=== PATIENT | female | born 2005 | race Caucasian/White ===

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

== ENCOUNTER 2024-02-09 02:07 | Outpatient (RCR) | payer BC, SELFPAY ==
[2024-01-23 00:02] VITALS: BP 94/56; PULSE 70; RESP 16; TEMP 37.1
[2024-02-09] MEDS: IMMUNE GLOBULIN 10 GM/100 ML BTL IVPB (08:14)
[2024-02-09] MEDS: Normal Saline Flush 10 ML SYR IVP (08:14)
[2024-02-09 08:20] VITALS: BP 94/60; PULSE 51; RESP 16; TEMP 36.9; O2SAT 100
[2024-02-09 08:35] VITALS: BP 95/56; PULSE 62; RESP 16; TEMP 37; O2SAT 99
[2024-02-09 08:50] VITALS: BP 88/46; PULSE 57; RESP 16; TEMP 36.9; O2SAT 100
[2024-02-09 09:20] VITALS: BP 91/58; PULSE 59; RESP 16; TEMP 37; O2SAT 99
[2024-02-09] MEDS: IMMUNE GLOBULIN 20 GM/200 ML BTL IVPB (09:20)
[2024-02-09 09:50] VITALS: BP 92/58; PULSE 55; RESP 16; TEMP 37; O2SAT 99
[2024-02-09 10:20] VITALS: BP 90/63; PULSE 51; RESP 16; TEMP 36.6; O2SAT 99
== END 2024-02-22 23:59 | disposition home or self-care (01) ==
LOC: INF 02:07
PROVIDERS: PCP Nurse Practitioner Pediatrics; Visit Provider Nurse Practitioner Acute Care
DX: D80.1 Nonfamilial hypogammaglobulinemia (principal)
CPT/HCPCS: 96365; 96366; J1459

== ENCOUNTER 2024-03-08 04:08 | Outpatient (CLI) | payer BC, SELFPAY ==
[2024-03-08 11:04] LABS: Absolute Basophil Count 0.08 10^3/uL (0.0-0.2); Absolute Lymphocyte Count 2.52 10^3/uL (1.2-3.4); Absolute Monocyte Count 0.42 10^3/uL (0.1-0.8); Absolute Neutrophil Count 0.95 10^3/uL (1.2-6.7); Eosinophils % 2.5 %; HCT 41.2 % (36.0-46.0); HGB 13.6 g/dL (11.2-15.7); Lymphocytes % 61.9 %; MCH 30.8 pg (27.0-33.0); MCV 93 fL (80-95); MPV 10.4 fL (8.0-11.0); Monocytes % 10.3 %; Neutrophils % 23.3 %; Platelet Count 230 10^3/uL (130-400); RBC 4.42 10^6/uL (3.93-5.22); RDW 11.8 % (11.7-14.6); RDW-SD 40.3 fL; WBC 4.07 10^3/uL (4.4-10.8)
[2024-03-08 11:35] LABS: Diff Comment Diff Reviewed; RBC Morphology Normal
[2024-03-08 12:03] LABS: ALT 19 U/L (14-59); AST 23 U/L (15-37); Albumin 3.6 g/dL (3.4-5.0); Alkaline Phosphatase 73 U/L (46-116); Anion Gap 7.6 mmol/L (3-11); BUN 9 mg/dL (7-18); Bilirubin, Total 1.25 mg/dL (0.2-1.0); CO2 28.4 mmol/L (21.0-32.0); CREATININE 0.7 mg/dL (0.55-1.02); Calcium 9.3 mg/dL (8.5-10.1); Chloride 105 mmol/L (98-107); Estimated GFR 127.69 (mL/min/1.73m2); Glucose 77 mg/dL (74-106); Potassium 4.3 mmol/L (3.5-5.1); Sodium 141 mmol/L (136-145); TSH (W/Ref FT4) 0.86 uIU/mL (0.52-4.13)
[2024-03-08 18:30] LABS: Ferritin 27 ng/mL (8-252)
== END 2024-03-08 04:09 | disposition home or self-care (01) ==
LOC: LBO 04:08
PROVIDERS: PCP Nurse Practitioner Pediatrics; Visit Provider Nurse Practitioner Pediatrics
DX: R53.83 Other fatigue (principal)
CPT/HCPCS: 36415; 80053; 82728; 84443; 85025

== ENCOUNTER 2024-03-09 01:23 | Outpatient (RCR) | payer BC, SELFPAY ==
[2024-02-23 00:05] VITALS: BP 94/56; PULSE 70; RESP 16; TEMP 37.1
[2024-03-09 10:05] VITALS: BP 99/68; PULSE 58; RESP 18; TEMP 36.9; O2SAT 98
[2024-03-09] MEDS: IMMUNE GLOBULIN 10 GM/100 ML BTL IVPB (10:08)
[2024-03-09] MEDS: Normal Saline Flush 10 ML SYR IVP (10:13)
[2024-03-09 10:28] VITALS: BP 101/63; PULSE 60; RESP 16; TEMP 36.8; O2SAT 98
[2024-03-09 10:42] VITALS: BP 106/66; PULSE 83; RESP 16; TEMP 36.6; O2SAT 99
[2024-03-09 11:12] VITALS: BP 91/56; PULSE 85; RESP 17; TEMP 36.6; O2SAT 98
[2024-03-09] MEDS: IMMUNE GLOBULIN 20 GM/200 ML BTL IVPB (11:12)
[2024-03-09 11:42] VITALS: BP 95/51; PULSE 55; RESP 16; TEMP 36.5; O2SAT 100
[2024-03-09 12:10] VITALS: BP 99/58; PULSE 57; RESP 18; TEMP 36.8; O2SAT 99
== END 2024-03-24 23:59 | disposition home or self-care (01) ==
LOC: INF 01:23
PROVIDERS: PCP Nurse Practitioner Pediatrics; Visit Provider Nurse Practitioner Acute Care
DX: D80.1 Nonfamilial hypogammaglobulinemia (principal)
CPT/HCPCS: 96365; 96366; J1459

== ENCOUNTER 2024-04-06 01:03 | Outpatient (RCR) | payer BC, SELFPAY ==
[2024-03-25 00:04] VITALS: BP 94/56; PULSE 70; RESP 16; TEMP 37.1
[2024-04-06] MEDS: IMMUNE GLOBULIN 10 GM/100 ML BTL IVPB (13:11)
[2024-04-06] MEDS: Normal Saline Flush 10 ML SYR IVP (13:12)
[2024-04-06 13:15] VITALS: BP 117/70; PULSE 72; RESP 18; TEMP 37.1; O2SAT 98
[2024-04-06 13:30] VITALS: BP 124/69; PULSE 68; RESP 18; TEMP 37.1; O2SAT 98
[2024-04-06 13:45] VITALS: BP 122/75; PULSE 75; RESP 18; TEMP 37.1; O2SAT 98
[2024-04-06 14:15] VITALS: BP 104/62; PULSE 74; RESP 18; TEMP 37.1; O2SAT 98
[2024-04-06] MEDS: IMMUNE GLOBULIN 20 GM/200 ML BTL IVPB (14:23)
[2024-04-06 14:45] VITALS: BP 112/70; PULSE 74; RESP 18; TEMP 37.1; O2SAT 98
[2024-04-06 15:15] VITALS: BP 116/78; PULSE 79; RESP 18; TEMP 37.1; O2SAT 98
== END 2024-04-23 23:59 | disposition home or self-care (01) ==
LOC: INF 01:03
PROVIDERS: PCP Nurse Practitioner Pediatrics; Visit Provider Nurse Practitioner Acute Care
DX: D80.1 Nonfamilial hypogammaglobulinemia (principal)
CPT/HCPCS: 96365; 96366; J1459

== ENCOUNTER 2024-05-11 01:00 | Outpatient (RCR) | payer BC, SELFPAY ==
[2024-04-24 00:05] VITALS: BP 94/56; PULSE 70; RESP 16; TEMP 37.1
[2024-05-11 12:59] VITALS: BP 110/69; PULSE 63; RESP 16; TEMP 37.1; O2SAT 98
[2024-05-11] MEDS: IMMUNE GLOBULIN 10 GM/100 ML BTL IVPB (13:08)
[2024-05-11] MEDS: Normal Saline Flush 10 ML SYR IVP (13:10)
[2024-05-11 13:26] VITALS: BP 109/69; PULSE 60; RESP 17; TEMP 37.1; O2SAT 98
[2024-05-11 13:44] VITALS: BP 110/69; PULSE 65; RESP 17; TEMP 37.1; O2SAT 98
[2024-05-11] MEDS: IMMUNE GLOBULIN 20 GM/200 ML BTL IVPB (14:07)
[2024-05-11 14:18] VITALS: BP 114/68; PULSE 66; RESP 17; TEMP 37.1; O2SAT 99
[2024-05-11 14:49] VITALS: BP 94/52; PULSE 60; RESP 17; TEMP 36.1; O2SAT 99
[2024-05-11 15:18] VITALS: BP 94/52; PULSE 62; RESP 17; TEMP 37.2; O2SAT 98
== END 2024-05-24 23:59 | disposition home or self-care (01) ==
LOC: INF 01:00
PROVIDERS: PCP Nurse Practitioner Pediatrics; Visit Provider Nurse Practitioner Acute Care
DX: D80.1 Nonfamilial hypogammaglobulinemia (principal)
CPT/HCPCS: 96365; 96366; J1459

== ENCOUNTER 2024-06-08 01:36 | Outpatient (RCR) | payer BC, SELFPAY ==
[2024-05-25 00:25] VITALS: BP 94/56; PULSE 70; RESP 16; TEMP 37.1
[2024-06-08] MEDS: IMMUNE GLOBULIN 10 GM/100 ML BTL IVPB (13:03)
[2024-06-08 13:05] VITALS: BP 114/57; PULSE 70; RESP 17; TEMP 36.8; O2SAT 96
[2024-06-08 13:20] VITALS: BP 95/63; PULSE 63; RESP 17; TEMP 36.8; O2SAT 94
[2024-06-08 13:35] VITALS: BP 95/61; PULSE 52; RESP 17; TEMP 36.7; O2SAT 99
[2024-06-08] MEDS: IMMUNE GLOBULIN 20 GM/200 ML BTL IVPB (14:07)
[2024-06-08 14:20] VITALS: BP 94/49; PULSE 84; RESP 18; TEMP 36.7; O2SAT 99
[2024-06-08 14:52] VITALS: BP 105/60; PULSE 60; RESP 17; TEMP 36.7; O2SAT 97
== END 2024-06-23 23:59 | disposition home or self-care (01) ==
LOC: INF 01:36
PROVIDERS: PCP Nurse Practitioner Pediatrics; Visit Provider Nurse Practitioner Acute Care
DX: D80.1 Nonfamilial hypogammaglobulinemia (principal)
CPT/HCPCS: 96365; 96366; J1459

== ENCOUNTER 2024-06-17 20:31 | Emergency (ER) | payer BC, SELFPAY ==
[2024-06-17 20:31] VITALS: BP 124/73; PULSE 89; RESP 18; TEMP 35.6; O2SAT 97
--- NOTE | 2024-06-17 20:45 | DI.RAD_ITS ---
Exam(s) XR CHEST 2V PA LATERAL EXAM: XR CHEST 2V PA LATERAL CLINICAL HISTORY: cough x2 mo, immunosuppressed TECHNIQUE: 2D digital imaging was performed of the chest. Two images were obtained. PA and lateral views were obtained. COMPARISON: CR CHEST 2 VIEWS PA,LAT from 10/27/[address] CHEST/ABD/PEL W from 11/15/2023 FINDINGS: MEDIASTINUM: Normal. HEART: Normal. PULMONARY VASCULATURE: Normal. LUNGS: Clear. PLEURAL SPACE: No pleural effusion or pneumothorax. BONE:Within normal limits for the patient's age. OTHER FINDINGS:Normal. IMPRESSION: No acute pulmonary findings. DATA REPOSITORY: RADIATION DOSE DELIVERED:
[2024-06-17 20:57] LABS: Abs Immature Grans 0.04 10^3/uL (0.0-0.06); Absolute Basophil Count 0.04 10^3/uL (0.0-0.2); Absolute Eosinophil Count 0.02 10^3/uL (0.0-0.7); Absolute Lymphocyte Count 1.51 10^3/uL (1.2-3.4); Absolute Monocyte Count 0.31 10^3/uL (0.1-0.8); Absolute Neutrophil Count 6.87 10^3/uL (1.2-6.7); Basophils % 0.5 %; Eosinophils % 0.2 %; HCT 41.8 % (36.0-46.0); HGB 13.5 g/dL (11.2-15.7); Immature Grans % 0.5 %; Lymphocytes % 17.2 %; MCHC 32.3 % (32.0-36.0); MCV 96 fL (80-95); MPV 10.3 fL (8.0-11.0); Monocytes % 3.5 %; Neutrophils % 78.1 %; Platelet Count 244 10^3/uL (130-400); RBC 4.35 10^6/uL (3.93-5.22); RDW 11.9 % (11.7-14.6); RDW-SD 42.5 fL; WBC 8.79 10^3/uL (4.4-10.8)
[2024-06-17] MEDS: Prochlorperazine 10 MG/2 ML VIAL 5 MG IVP (20:59)
[2024-06-17] MEDS: Ketorolac 15 MG/ML VIAL 7.5 MG IVP (21:00)
[2024-06-17 21:13] LABS: ALT 19 U/L (14-59); AST 20 U/L (15-37); Albumin 3.8 g/dL (3.4-5.0); Alkaline Phosphatase 77 U/L (46-116); Anion Gap 11.6 mmol/L (3-11); BUN 8 mg/dL (7-18); Bilirubin, Total 1.21 mg/dL (0.2-1.0); CO2 25.4 mmol/L (21.0-32.0); CREATININE 0.8 mg/dL (0.55-1.02); Chloride 105 mmol/L (98-107); Estimated GFR 108.78 (mL/min/1.73m2); Glucose 102 mg/dL (74-106); Lipase 45 U/L (<78); Magnesium 1.9 mg/dL (1.8-2.4); Potassium 3.8 mmol/L (3.5-5.1); Sodium 142 mmol/L (136-145); Total Protein 8.1 g/dL (6.4-8.2)
--- NOTE | 2024-06-17 21:26 | W.ED.GENAD ---
Discharge Plan Disposition Patient Disposition: Home Condition: Stable Discharge Details Clinical Impression: Nausea & vomiting Primary Care Provider: Micheal Mcwilliams ED Provider: Delores Patrick Home Meds and New Rx's Prescriptions: New ondansetron 4 mg tablet,disintegrating 4 mg PO Q8-10H PRNQty: 10 0RF Continued (DME) Aerochamber MV Spacer See Rx Instructions .ROUTE .MEDSUPPLY Qty: 2 1RF Rx Instructions: As directed fluoxetine 10 mg capsule 10 mg PO DAILY Qty: 90 4RF Rx Instructions: Take 1 cap daily Hizentra 10 GM/50 ML solution 20 gm IV monthly Qty: 100 levonorgestrel-ethinyl estrad [Vienva] 0.1-20 mg-mcg tablet See Rx Instructions .ROUTE .COMPLEX Qty: 84 3RF Dose Instruction: TAKE 1 TABLET BY MOUTH DAILY Rx Instructions: TAKE 1 TABLET BY MOUTH DAILY budesonide-formoterol [Symbicort] 160-4.5 mcg/actuation HFA aerosol inhaler 2 puff inhalation BID Qty: 10.2 1RF Rx Instructions: Take 2 puffs twice daily with onset of cold symptoms and 2 puffs as needed diphenhydramine HCl 25 MG capsule 25 mg PO PRN PRN Discharge Instructions Instructions: Nausea and vomiting in adults Additional Instructions: Take Zofran as needed for nausea and vomiting Clear liquid diet as tolerated Return should you develop fever, chills, persistent nausea vomiting, or if any new concerns arise Please follow-up with your primary care physician for recheck in 48 hours Referrals: Micheal Mcwilliams, INSTALLATION SPECIALIST [Primary Care Provider] - 2 days HPI General Date/Time Provider Initiated Documentation: 06/17/24 20:36. HPI Narrative: This 18-year-old female with congenital immunodeficiency, mild intermittent asthma hypogammaglobulinemia, trigeminal neuralgia presents with report of nausea and vomiting with headache that started at around 8 to 9 AM this morning. Denies known sick contacts, fever or chills. Denies chest pain or shortness of breath. Intermittent abdominal pain primarily prior to onset of vomiting has had approximately 4 episodes of vomiting today denies any blood in vomitus or chance of . Denies any new medications. Last received IVIG on 08 June without incident receives immunoglobulin monthly. Does attend [facility] but denies known sick contacts. Denies any rashes or lesions. Denies any falls or injuries. Denies any stiff neck. Related Data Home Medications ?Medication ?Instructions ?Recorded ?Confirmed diphenhydramine HCl 25 mg capsule 25 mg PO PRN PRN 12/10/17 06/17/24 immun glob G 10 gram/50 mL(20 20 gm IV monthly #100 mL 03/07/18 06/17/24 %)-pro-IgA 0-50 mcg/mL subcutaneous soln (Hizentra) levonorgestrel-ethinyl estradiol See Rx Instructions .Route 01/05/24 06/17/24 0.1 mg-20 mcg tablet (Vienva) .COMPLEX #84 tabs fluoxetine 10 mg capsule 10 mg PO DAILY #90 caps 02/29/24 06/17/24 inhalational spacing device #2 ea 02/29/24 06/17/24 (Aerochamber MV spacer) budesonide-formoterol HFA 160 2 puff inhalation BID #10.2 grams 03/01/24 06/17/24 mcg-4.5 mcg/actuation aerosol inhaler (Symbicort) ondansetron 4 mg disintegrating 4 mg PO Q8-10H PRN #10 tabs 06/17/24 tablet Previous Rx's ?Medication ?Instructions ?Recorded levonorgestrel-ethinyl estradiol See Rx Instructions .Route 01/05/24 0.1 mg-20 mcg tablet (Vienva) .COMPLEX #84 tabs fluoxetine 10 mg capsule 10 mg PO DAILY #90 caps 02/29/24 inhalational spacing device #2 ea 02/29/24 (Aerochamber MV spacer) budesonide-formoterol HFA 160 2 puff inhalation BID #10.2 grams 03/01/24 mcg-4.5 mcg/actuation aerosol inhaler (Symbicort) ondansetron 4 mg disintegrating 4 mg PO Q8-10H PRN #10 tabs 06/17/24 tablet Allergies Allergy/AdvReac Type Severity Reaction Status Date / Time No Known Allergies Allergy Verified 06/17/24 20:35 General Stated Complaint: Nausea/Vomit/Diar GATITO: 3 Exam Narrative Exam Narrative: Alert and oriented 18-year-old female in no acute distress, pupils equal round reactive to light and accommodation, no meningismus, lungs clear to auscultation, cardiac rate rhythm regular alert and oriented x 4, Course Vital Signs Vital signs: Vital Signs Temperature 35.6 C L 06/17/24 20:31 Pulse 89 06/17/24 20:31 Respiratory Rate 18 06/17/24 20:31 Blood Pressure 124/73 06/17/24 20:31 Pulse Oximetry 97 06/17/24 20:31 Temperature 35.6 C L 06/17/24 20:31 Temperature Source Temporal Artery Scan 06/17/24 20:31 Pulse 89 06/17/24 20:31 Respiratory Rate 18 06/17/24 20:31 Respiratory Effort Normal, Non-Labored 06/17/24 20:36 Blood Pressure 124/73 06/17/24 20:31 Blood Pressure Position Sitting 06/17/24 20:31 Pulse Oximetry 97 06/17/24 20:31 Oxygen Delivery Method Room Air 06/17/24 20:31 Oxygen Flow Rate 0 06/17/24 20:31 Pain Level 6 06/17/24 20:31 Lab/Test Results Lab/Test Results: Laboratory Tests Range/Units 06/17/24 20:50 WBC (4.4-10.8) 10^3/uL 8.79 RBC (3.93-5.22) 10^6/uL 4.35 Hgb (11.2-15.7) g/dL 13.5 Hct (36.0-46.0) % 41.8 MCV (80-95) fL 96 H MCH (27.0-33.0) pg 31.0 MCHC (32.0-36.0) % 32.3 RDW (11.7-14.6) % 11.9 Plt Count (130-400) 10^3/uL 244 MPV (8.0-11.0) fL 10.3 Immature Gran % % 0.5 Neutrophils % % 78.1 Lymphocytes % % 17.2 Monocytes % % 3.5 Eosinophils % % 0.2 Basophils % % 0.5 Nucleated RBC % (0.0-0.3) % 0.0 Absolute Neutrophils (1.2-6.7) 10^3/uL 6.87 H Absolute Lymphocytes (1.2-3.4) 10^3/uL 1.51 Absolute Monocytes (0.1-0.8) 10^3/uL 0.31 Absolute Eosinophils (0.0-0.7) 10^3/uL 0.02 Absolute Basophils (0.0-0.2) 10^3/uL 0.04 Sodium (136-145) mmol/L 142 Potassium (3.5-5.1) mmol/L 3.8 Chloride (98-107) mmol/L 105 Carbon Dioxide (21.0-32.0) mmol/L 25.4 Anion Gap (3-11) mmol/L 11.6 H BUN (7-18) mg/dL 8 Creatinine (0.55-1.02) mg/dL 0.8 Est GFR (CKD-EPI 2020) (mL/min/1.73m2) 108.78 Glucose (74-106) mg/dL 102 Calcium (8.5-10.1) mg/dL 9.0 Magnesium (1.8-2.4) mg/dL 1.9 Total Bilirubin (0.2-1.0) mg/dL 1.21 H AST (15-37) U/L 20 ALT (14-59) U/L 19 Alkaline Phosphatase (46-116) U/L 77 Total Protein (6.4-8.2) g/dL 8.1 Albumin (3.4-5.0) g/dL 3.8 Lipase (<78) U/L 45 Medical Decision Making 18-year-old female with history of immunocompromise state presenting with nausea and vomiting. She had no acute distress, she received Compazine. She is afebrile and nontoxic, chest x-ray per radiology interpretation my review does not show evidence of acute abnormality. She is feeling marked improvement after Toradol. She is able to tolerate p.o. and requesting discharge home. POC negative. Urinalysis is a contaminated specimen, no obvious evidence of urinary tract infection. Return precautions reviewed and patient expressed understanding. Recheck with primary care physician in 2 to 3 days. 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 Lucas, [facility] [place] Pyloric stenosis REPAIRED Chronic otitis media Bacterial urinary infection NORMAL US 02-20-08 Surgical History H/O breast surgery Mass excised [facility] [place] November 2021 Repair, Pyloric Stenosis Myringotomy w/ PE (pressure equalizing) tubes Adenoidectomy Family History Mother No problems noted. Father No problems noted. 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
[2024-06-17] MEDS: diphenhydrAMINE 50 MG/ML VIAL 25 MG IVP (21:57)
--- NOTE | 2024-06-17 22:12 | DI.VRAD_ITS ---
PROCEDURE INFORMATION: Exam: XR Chest Exam date and time: 06/17/2024 9:11 PM Age: 18 years old Clinical indication: Other: Cough x2 mo, immunosuppressed TECHNIQUE: Imaging protocol: Radiologic exam of the chest. Views: 2 views. COMPARISON: CT CHEST/ABD/PEL W 11/15/2023 10:11 AM FINDINGS: Lungs: There is no focal consolidation. Pleural spaces: There is no pneumothorax. Heart/Mediastinum: The cardiomediastinal contours are within normal limits. Bones/joints: Bony structures are age-appropriate. IMPRESSION: 1. No focal consolidation or pneumothorax. If symptoms remain concerning, CT scan could be considered. Dictated and Authenticated by: Gillian Ray MD. Ordering:RYLEE Estrella MD
[2024-06-17 22:22] LABS: Bilirubin Small (Negative); Blood Negative (Negative); Clarity Clear (Clear); Glucose Negative (Negative); Ketones 40 mg/dL (Negative); Leukocyte Esterase Trace (Negative); Nitrite Negative (Negative); Specific Gravity 1.025 (1.005-1.025)
[2024-06-17 22:28] VITALS: BP 90/57; PULSE 69; RESP 16; TEMP 36.7; O2SAT 100
[2024-06-17 22:30] VITALS: BP 90/57; PULSE 69; RESP 16; TEMP 36.7; O2SAT 100
[2024-06-17 22:32] LABS: Bacteria Moderate HPF (Negative); C & S Indicated? No/Sq. Contamination; Casts Negative LPF (Negative); Crystals Negative HPF (Negative); Epithelial Cells Many HPF (Negative); Mucus Heavy (Negative); RBC 0-2 HPF (0-2)
[2024-06-17] MEDS: Ondansetron O.D.T. 4 MG TABEF, 3 TABS/BTL PO (22:32)
== END 2024-06-17 22:30 | disposition home or self-care (01) ==
PROVIDERS: Emergency Provider Physician Assistant; PCP Nurse Practitioner Pediatrics
DX: R11.2 Nausea with vomiting, unspecified (principal); R51.9 Headache, unspecified; M54.2 Cervicalgia; D80.2 Selective deficiency of immunoglobulin A [IgA]; D80.3 Selective deficiency of immunoglobulin G [IgG] subclasses; G50.0 Trigeminal neuralgia; Z79.899 Other long term (current) drug therapy
CPT/HCPCS: 80053; 81025; 83690; 96374; 96375; 99285; 71046; 81003; 81015; 83735; 85025; 99284; J0780; J1200; J1885

== ENCOUNTER 2024-07-04 02:10 | Outpatient (RCR) | payer BC, SELFPAY ==
[2024-06-24 00:10] VITALS: BP 94/56; PULSE 70; RESP 16; TEMP 37.1
[2024-07-04] MEDS: IMMUNE GLOBULIN 20 GM/200 ML BTL IVPB (12:31)
[2024-07-04 12:39] VITALS: BP 102/51; PULSE 62; RESP 18; TEMP 37.1; O2SAT 99
[2024-07-04] MEDS: Normal Saline Flush 10 ML SYR IVP (12:46)
[2024-07-04 12:56] VITALS: BP 101/65; PULSE 61; RESP 18; TEMP 36.8; O2SAT 97
[2024-07-04 13:11] VITALS: BP 106/68; PULSE 65; RESP 18; TEMP 36.8; O2SAT 98
[2024-07-04 13:43] VITALS: BP 100/61; PULSE 61; RESP 18; TEMP 36.6; O2SAT 98
[2024-07-04] MEDS: IMMUNE GLOBULIN 10 GM/100 ML BTL IVPB (13:43)
[2024-07-04 14:12] VITALS: BP 96/56; PULSE 61; RESP 18; TEMP 36.6; O2SAT 99
[2024-07-04 14:41] VITALS: BP 100/56; PULSE 54; RESP 18; TEMP 36.6; O2SAT 98
== END 2024-07-24 23:59 | disposition home or self-care (01) ==
LOC: INF 02:10
PROVIDERS: PCP Nurse Practitioner Pediatrics; Visit Provider Nurse Practitioner Acute Care
DX: D80.1 Nonfamilial hypogammaglobulinemia (principal); R53.83 Other fatigue
CPT/HCPCS: 96365; 96366; J1459

== ENCOUNTER 2024-08-27 02:56 | Outpatient (RCR) | payer OTHER, SELFPAY ==
[2024-08-27] MEDS: Normal Saline Flush 10 ML SYR IVP (08:19)
[2024-08-27] MEDS: IMMUNE GLOBULIN 10 GM/100 ML BTL IVPB (08:19)
[2024-08-27 08:24] VITALS: BP 90/53; PULSE 60; RESP 16; TEMP 36.6; O2SAT 98
[2024-08-27 08:28] LABS: Abs Immature Grans 0.01 10^3/uL (0.0-0.06); Absolute Basophil Count 0.04 10^3/uL (0.0-0.2); Absolute Eosinophil Count 0.12 10^3/uL (0.0-0.7); Absolute Lymphocyte Count 3.22 10^3/uL (1.2-3.4); Absolute Neutrophil Count 1.71 10^3/uL (1.2-6.7); Basophils % 0.7 %; Eosinophils % 2.2 %; HCT 39.5 % (36.0-46.0); HGB 12.7 g/dL (11.2-15.7); Immature Grans % 0.2 %; Lymphocytes % 58.5 %; MCH 31.2 pg (27.0-33.0); MCHC 32.2 % (32.0-36.0); MCV 97 fL (80-95); MPV 10.6 fL (8.0-11.0); Monocytes % 7.3 %; Neutrophils % 31.1 %; Platelet Count 203 10^3/uL (130-400); RBC 4.07 10^6/uL (3.93-5.22); RDW 11.5 % (11.7-14.6); RDW-SD 41.1 fL
[2024-08-27 08:40] VITALS: BP 106/69; PULSE 69; RESP 16; TEMP 36.4; O2SAT 100
[2024-08-27 08:54] LABS: ALT 26 U/L (14-59); AST 22 U/L (15-37); CREATININE 0.8 mg/dL (0.55-1.02); Estimated GFR 108.11 (mL/min/1.73m2); Iron 49 ug/dL (50-170); Total Iron Binding Capacity 480 ug/dL (250-450); Transferrin Sat 10 % (15-50)
[2024-08-27 08:55] VITALS: BP 99/52; PULSE 69; RESP 16; TEMP 36.4; O2SAT 99
[2024-08-27 09:25] VITALS: BP 97/60; PULSE 64; RESP 16; TEMP 36.5; O2SAT 100
[2024-08-27] MEDS: IMMUNE GLOBULIN 20 GM/200 ML BTL IVPB (09:25)
[2024-08-27 09:55] VITALS: BP 95/61; PULSE 68; RESP 16; TEMP 36.6; O2SAT 98
[2024-08-27 10:25] VITALS: BP 118/74; PULSE 92; RESP 16; TEMP 36.7; O2SAT 99
[2024-08-28 10:36] LABS: IgA <13 mg/dL (85-499); IgG 947 mg/dL (610-1616); IgM <12 mg/dL (35-242)
== END 2024-09-21 23:59 | disposition home or self-care (01) ==
LOC: INF 02:56
PROVIDERS: Allergy & Immunology Allergy; PCP Nurse Practitioner Pediatrics; Visit Provider Nurse Practitioner Acute Care
DX: D83.9 Common variable immunodeficiency, unspecified (principal); R53.83 Other fatigue
CPT/HCPCS: 36415; 82784; 96365; 96366; 82565; 83540; 83550; 84450; 84460; 85025; J1459

== ENCOUNTER 2024-10-22 01:29 | Outpatient (RCR) | payer OTHER, SELFPAY ==
[2024-09-24] MEDS: Normal Saline Flush 5 ML SYR IVP (08:14)
[2024-09-24] MEDS: IMMUNE GLOBULIN 20 GM/200 ML BTL IVPB (08:14)
[2024-09-24 08:23] VITALS: BP 110/72; PULSE 83; RESP 18; TEMP 37.5; O2SAT 99
[2024-09-24] MEDS: Acetaminophen 500 MG TAB 1000 MG PO (08:25)
[2024-09-24 08:42] VITALS: BP 107/72; PULSE 72; RESP 18; TEMP 37.5; O2SAT 98
[2024-09-24 08:58] VITALS: BP 108/70; PULSE 64; RESP 18; TEMP 36.7; O2SAT 99
[2024-09-24 09:26] VITALS: BP 110/74; PULSE 62; RESP 16; TEMP 36.7; O2SAT 98
[2024-09-24] MEDS: IMMUNE GLOBULIN 10 GM/100 ML BTL IVPB (10:00)
[2024-09-24 10:01] VITALS: BP 107/71; PULSE 63; RESP 18; TEMP 36.6; O2SAT 99
[2024-09-24 10:29] VITALS: BP 103/69; PULSE 65; RESP 18; TEMP 36.8; O2SAT 99
[2024-10-22 08:07] VITALS: BP 97/61; PULSE 60; RESP 18; TEMP 37.7; O2SAT 100
[2024-10-22] MEDS: Normal Saline Flush 5 ML SYR IVP (08:09)
[2024-10-22] MEDS: IMMUNE GLOBULIN 10 GM/100 ML BTL IVPB (08:10)
[2024-10-22 08:32] VITALS: BP 102/54; PULSE 58; RESP 16; TEMP 36.9; O2SAT 99
[2024-10-22 08:47] VITALS: BP 111/69; PULSE 58; RESP 16; TEMP 36.7; O2SAT 99
[2024-10-22] MEDS: IMMUNE GLOBULIN 20 GM/200 ML BTL IVPB (09:14)
[2024-10-22 09:16] VITALS: BP 107/66; PULSE 71; RESP 18; TEMP 36.7; O2SAT 98
[2024-10-22 09:50] VITALS: BP 109/65; PULSE 65; RESP 17; TEMP 36.6; O2SAT 97
== END 2024-10-22 23:59 | disposition home or self-care (01) ==
LOC: INF 01:29
PROVIDERS: PCP Nurse Practitioner Pediatrics; Visit Provider Nurse Practitioner Acute Care
DX: D80.1 Nonfamilial hypogammaglobulinemia (principal)
CPT/HCPCS: 96365; 96366; J1459

== ENCOUNTER 2024-11-19 00:24 | Outpatient (RCR) | payer OTHER, SELFPAY ==
[2024-11-19 08:12] VITALS: BP 113/74; PULSE 69; RESP 20; TEMP 36.8; O2SAT 97
[2024-11-19] MEDS: IMMUNE GLOBULIN 10 GM/100 ML BTL IVPB (08:14)
[2024-11-19] MEDS: Normal Saline Flush 5 ML SYR IVP (08:15)
[2024-11-19 08:41] VITALS: BP 108/67; PULSE 70; RESP 19; TEMP 36.9; O2SAT 99
[2024-11-19 08:53] VITALS: BP 108/61; PULSE 69; RESP 20; TEMP 36.6; O2SAT 98
[2024-11-19] MEDS: IMMUNE GLOBULIN 20 GM/200 ML BTL IVPB (09:19)
[2024-11-19 09:24] VITALS: BP 117/71; PULSE 63; RESP 18; TEMP 36.9; O2SAT 97
[2024-11-19 09:54] VITALS: BP 116/75; PULSE 66; RESP 18; TEMP 36.7; O2SAT 99
== END 2024-11-21 23:59 | disposition home or self-care (01) ==
LOC: INF 00:24
PROVIDERS: PCP Nurse Practitioner Pediatrics; Visit Provider Nurse Practitioner Acute Care
DX: D80.1 Nonfamilial hypogammaglobulinemia (principal)
CPT/HCPCS: 96365; 96366; J1459

== ENCOUNTER 2024-12-19 01:03 | Outpatient (RCR) | payer OTHER, SELFPAY ==
[2024-12-19] MEDS: IMMUNE GLOBULIN 10 GM/100 ML BTL IVPB (08:11)
[2024-12-19] MEDS: Normal Saline Flush 10 ML SYR IVP (08:12)
[2024-12-19 08:17] VITALS: BP 99/64; PULSE 70; RESP 18; TEMP 37.2; O2SAT 98
[2024-12-19 08:33] VITALS: BP 96/60; PULSE 80; RESP 18; TEMP 37.2; O2SAT 97
[2024-12-19 08:50] VITALS: BP 100/61; PULSE 80; RESP 18; TEMP 37.3; O2SAT 99
[2024-12-19] MEDS: IMMUNE GLOBULIN 20 GM/200 ML BTL IVPB (09:17)
[2024-12-19 09:21] VITALS: BP 103/66; PULSE 81; RESP 18; TEMP 37; O2SAT 98
[2024-12-19 09:55] VITALS: BP 102/66; PULSE 84; RESP 18; TEMP 37.3; O2SAT 99
== END 2024-12-22 23:59 | disposition home or self-care (01) ==
LOC: INF 01:03
PROVIDERS: PCP Nurse Practitioner Pediatrics; Visit Provider Nurse Practitioner Acute Care
DX: D80.1 Nonfamilial hypogammaglobulinemia (principal)
CPT/HCPCS: 96365; 96366; J1459

== ENCOUNTER 2025-01-14 02:53 | Outpatient (RCR) | payer OTHER, SELFPAY ==
[2025-01-14 08:00] VITALS: BP 105/64; PULSE 73; RESP 18; TEMP 36.6; O2SAT 98
[2025-01-14] MEDS: IMMUNE GLOBULIN 10 GM/100 ML BTL IVPB (08:12)
[2025-01-14 08:30] VITALS: BP 104/64; PULSE 53; RESP 18; TEMP 36.6; O2SAT 99
[2025-01-14 08:45] VITALS: BP 99/65; PULSE 58; RESP 18; TEMP 36.5; O2SAT 100
[2025-01-14] MEDS: IMMUNE GLOBULIN 20 GM/200 ML BTL 3 GM IVPB (09:12)
[2025-01-14 09:17] VITALS: BP 101/69; PULSE 75; RESP 16; TEMP 36.4; O2SAT 98
[2025-01-14 09:47] VITALS: BP 101/66; PULSE 60; RESP 16; TEMP 36.5; O2SAT 99
[2025-01-14 10:24] VITALS: BP 116/78; PULSE 68; RESP 16; TEMP 36.6; O2SAT 99
[2025-01-14] MEDS: Normal Saline Flush 10 ML SYR IVP (10:41)
== END 2025-01-21 23:59 | disposition home or self-care (01) ==
LOC: INF 02:53
PROVIDERS: PCP Nurse Practitioner Pediatrics; Visit Provider Nurse Practitioner Acute Care
DX: D80.1 Nonfamilial hypogammaglobulinemia (principal)
CPT/HCPCS: 96365; 96366; J1459

== ENCOUNTER 2025-02-13 02:11 | Outpatient (RCR) | payer OTHER, SELFPAY ==
[2025-02-13] MEDS: IMMUNE GLOBULIN 10 GM/100 ML BTL 4 GM IVPB (08:27)
[2025-02-13 08:29] VITALS: BP 104/63; PULSE 69; RESP 18; TEMP 36.7; O2SAT 100
[2025-02-13 08:45] VITALS: BP 92/57; PULSE 68; RESP 18; TEMP 36.6; O2SAT 98
[2025-02-13 09:00] VITALS: BP 93/57; PULSE 63; RESP 18; TEMP 36.5; O2SAT 100
[2025-02-13] MEDS: IMMUNE GLOBULIN 20 GM/200 ML BTL IVPB (09:29)
[2025-02-13 09:33] VITALS: BP 100/58; PULSE 64; RESP 18; TEMP 36.7; O2SAT 99
[2025-02-13 10:07] VITALS: BP 100/61; PULSE 50; RESP 18; TEMP 36.8; O2SAT 99
[2025-02-13] MEDS: Normal Saline Flush 10 ML SYR IVP (10:49)
== END 2025-02-21 23:59 | disposition home or self-care (01) ==
LOC: INF 02:11
PROVIDERS: PCP Nurse Practitioner Pediatrics; Visit Provider Nurse Practitioner Acute Care
DX: D80.1 Nonfamilial hypogammaglobulinemia (principal)
CPT/HCPCS: 96365; 96366; J1459

== ENCOUNTER 2025-03-11 03:45 | Outpatient (RCR) | payer OTHER, SELFPAY ==
[2025-03-11] MEDS: IMMUNE GLOBULIN 10 GM/100 ML BTL IVPB (08:17)
[2025-03-11 08:20] VITALS: BP 97/54; PULSE 71; RESP 17; TEMP 36.5; O2SAT 100
[2025-03-11] MEDS: Normal Saline Flush 10 ML SYR IVP (08:23)
[2025-03-11 08:35] VITALS: BP 94/60; PULSE 60; RESP 16; TEMP 36.1; O2SAT 98
[2025-03-11 08:50] VITALS: BP 91/55; PULSE 59; RESP 17; TEMP 36.1; O2SAT 99
[2025-03-11 09:20] VITALS: BP 104/69; PULSE 61; RESP 17; TEMP 37.2; O2SAT 100
[2025-03-11] MEDS: IMMUNE GLOBULIN 20 GM/200 ML BTL IVPB (09:24)
[2025-03-11 09:29] LABS: Abs Immature Grans 0.01 10^3/uL (0.0-0.06); HCT 41.3 % (36.0-46.0); HGB 13.2 g/dL (11.2-15.7); Immature Grans % 0.1 %; MCH 30.6 pg (27.0-33.0); MCHC 32.0 % (32.0-36.0); MCV 96 fL (80-95); MPV 11.3 fL (8.0-11.0); Platelet Count 210 10^3/uL (130-400); RBC 4.32 10^6/uL (3.93-5.22); RDW 11.7 % (11.7-14.6); RDW-SD 41.2 fL; WBC 6.92 10^3/uL (4.4-10.8)
[2025-03-11 09:50] VITALS: BP 99/62; PULSE 61; RESP 17; TEMP 36.6; O2SAT 100
[2025-03-11 09:54] LABS: ALT 25 U/L (14-59); AST 23 U/L (15-37); Estimated GFR 126.90 (mL/min/1.73m2)
[2025-03-11 10:20] VITALS: BP 100/67; PULSE 73; RESP 17; TEMP 36.1; O2SAT 100
== END 2025-03-24 23:59 | disposition home or self-care (01) ==
LOC: INF 03:45
PROVIDERS: PCP Nurse Practitioner Pediatrics; Visit Provider Family Medicine
DX: D80.1 Nonfamilial hypogammaglobulinemia (principal)
CPT/HCPCS: 36415; 82784; 96365; 96366; 82565; 84450; 84460; 85025; J1459

== ENCOUNTER 2025-04-09 04:02 | Outpatient (RCR) | payer OTHER, SELFPAY ==
[2025-04-09] MEDS: Normal Saline Flush 10 ML SYR IVP (08:26)
[2025-04-09] MEDS: IMMUNE GLOBULIN 10 GM/100 ML BTL IVPB (08:27)
[2025-04-09 08:30] VITALS: BP 112/71; PULSE 74; RESP 17; TEMP 36.5; O2SAT 97
[2025-04-09 08:45] VITALS: BP 110/72; PULSE 70; RESP 17; TEMP 36.5; O2SAT 98
[2025-04-09 09:00] VITALS: BP 104/68; PULSE 71; RESP 18; TEMP 36.5; O2SAT 97
[2025-04-09 09:30] VITALS: BP 100/65; PULSE 72; RESP 17; TEMP 36.4; O2SAT 98
[2025-04-09] MEDS: IMMUNE GLOBULIN 20 GM/200 ML BTL IVPB (09:35)
[2025-04-09 10:00] VITALS: BP 95/61; PULSE 64; RESP 17; TEMP 36.6; O2SAT 99
[2025-04-09 10:30] VITALS: BP 103/64; PULSE 64; RESP 16; TEMP 36.6; O2SAT 100
== END 2025-04-23 23:59 | disposition home or self-care (01) ==
LOC: INF 04:02
PROVIDERS: PCP Nurse Practitioner Pediatrics; Visit Provider Family Medicine
DX: D80.0 Hereditary hypogammaglobulinemia (principal)
CPT/HCPCS: 96365; 96366; J1459

== ENCOUNTER 2025-05-07 02:27 | Outpatient (RCR) | payer OTHER, SELFPAY ==
[2025-05-07] MEDS: IMMUNE GLOBULIN 10 GM/100 ML BTL IVPB (08:20)
[2025-05-07 08:25] VITALS: BP 101/64; PULSE 63; RESP 17; TEMP 37; O2SAT 99
[2025-05-07] MEDS: Normal Saline Flush 10 ML SYR IVP (08:30)
[2025-05-07 08:40] VITALS: BP 90/50; PULSE 63; RESP 17; TEMP 36.6; O2SAT 98
[2025-05-07 08:55] VITALS: BP 89/55; PULSE 75; RESP 17; TEMP 36.9; O2SAT 98
[2025-05-07 09:25] VITALS: BP 94/50; PULSE 80; RESP 17; TEMP 36.6; O2SAT 100
[2025-05-07] MEDS: IMMUNE GLOBULIN 20 GM/200 ML BTL IVPB (09:30)
[2025-05-07 09:55] VITALS: BP 101/66; PULSE 69; RESP 17; TEMP 36.6; O2SAT 100
== END 2025-05-24 23:59 | disposition home or self-care (01) ==
LOC: INF 02:27
PROVIDERS: PCP Nurse Practitioner Pediatrics; Visit Provider Family Medicine
DX: D80.9 Immunodeficiency with predominantly antibody defects, unspecified (principal)
CPT/HCPCS: 96365; 96366; 96372; 96375; J1459

== ENCOUNTER 2025-06-04 00:56 | Outpatient (RCR) | payer OTHER, SELFPAY ==
[2025-06-04] MEDS: Normal Saline Flush 10 ML SYR IVP (08:38)
[2025-06-04] MEDS: Immune Globulin-Privigen 10 GM/100 ML BTL IVPB (08:38)
[2025-06-04 08:40] VITALS: BP 104/70; PULSE 74; RESP 17; TEMP 37.1; O2SAT 98
[2025-06-04 08:55] VITALS: BP 95/59; PULSE 78; RESP 17; TEMP 37.2; O2SAT 100
[2025-06-04 09:14] VITALS: BP 98/59; PULSE 71; RESP 17; TEMP 37; O2SAT 98
[2025-06-04] MEDS: [UNRECOGNIZED DRUG - OTHER] IVPB (09:35)
[2025-06-04 09:40] VITALS: BP 99/65; PULSE 65; RESP 18; TEMP 37.1; O2SAT 100
[2025-06-04 10:10] VITALS: BP 113/66; PULSE 72; RESP 17; TEMP 37.2; O2SAT 100
== END 2025-06-23 23:59 | disposition home or self-care (01) ==
LOC: INF 00:56
PROVIDERS: PCP Nurse Practitioner Pediatrics; Visit Provider Family Medicine
DX: D80.2 Selective deficiency of immunoglobulin A [IgA] (principal); D83.9 Common variable immunodeficiency, unspecified
CPT/HCPCS: 96365; 96366; J1459

== ENCOUNTER 2025-07-09 14:34 | Emergency (ER) | payer OTHER, SELFPAY ==
[2025-07-09 14:38] VITALS: BP 109/70; PULSE 81; RESP 20; TEMP 36.4; O2SAT 98
[2025-07-09 14:41] VITALS: BP 109/70; PULSE 81; RESP 20; TEMP 36.4; O2SAT 98
[2025-07-09 16:00] LABS: COVID-19 PCR Negative (Negative); RSV PCR Negative (Negative)
--- NOTE | 2025-07-09 16:50 | W.ED.GENAD ---
Discharge Plan Disposition Patient Disposition: Home Condition: Stable Discharge Details Clinical Impression: Influenza A Primary Care Provider: Micheal Mcwilliams ED Provider: Catracho Alamo Home Meds and New Rx's Prescriptions: New oseltamivir 75 mg capsule 75 mg PO BID 5 Days Qty: 10 0RF Continued budesonide-formoterol [Symbicort] 160-4.5 mcg/actuation HFA aerosol inhaler 2 puff inhalation BID Qty: 10.2 1RF Rx Instructions: Take 2 puffs twice daily with onset of cold symptoms and 2 puffs as needed (DME) Aerochamber MV Spacer See Rx Instructions .ROUTE .MEDSUPPLY Qty: 2 1RF Rx Instructions: As directed Hizentra 10 GM/50 ML solution 20 gm IV monthly Qty: 100 fluoxetine 10 mg capsule See Rx Instructions .ROUTE .COMPLEX Qty: 90 4RF Dose Instruction: TAKE ONE CAPSULE BY MOUTH EVERY DAY Rx Instructions: TAKE ONE CAPSULE BY MOUTH EVERY DAY levonorgestrel-ethinyl estrad [Vienva] 0.1-20 mg-mcg tablet See Rx Instructions .ROUTE .COMPLEX Qty: 84 0RF Dose Instruction: TAKE 1 TABLET BY MOUTH DAILY Rx Instructions: TAKE 1 TABLET BY MOUTH DAILY diphenhydramine HCl 25 MG capsule 25 mg PO PRN PRN ondansetron 4 mg tablet,disintegrating 4 mg PO Q8-10H PRNQty: 10 0RF Discharge Instructions Instructions: Oseltamivir, Flu, Adult ED Additional Instructions: You were seen in the emergency department for your influenza infection, your onset is within the timeline to start Tamiflu, this medicine is clinically shown to shorten the duration of flu. Please use therapeutic dosing of Tylenol (acetamenophen) & Advil (ibuprofen) in an alternating fashion as follows: Take 1000mg of Tylenol every 6 hours without missing doses- that is 4 times per day. [place] in between the Tylenol dosings, take 400-600mg of Advil also on a 6 hour schedule, that is also 4 times per day. The daily maximum dosing of Tylenol is 4000mg, and the daily maximum dosing of Advil is 2400mg. This is safe to do for weeks. Please note that some common cold medications & prescription pain medications may contain acetamenophen and you need to read OTC drug labels and factor that in to maximum daily dosings. Use tea with honey, salt water gargles to relieve throat irritation, get lots of rest and stay well-hydrated and nourished. Return for any respiratory distress or other emergent concerns. Stand Alone Forms: Portal Information Referrals: Micheal Mcwilliams NP [Primary Care Provider, Pediatrics Medical] Discharge Data Discharge Date/Time-TO BE ENTERED AT DEPARTURE: 07/09/25 17:02 HPI General Date/Time Provider Initiated Documentation: 07/09/25 14:41. HPI Narrative: 19 year-old female presents to ED today by POV/ambulating with her mother with a chief complaint of N/V/D, sore throat, headache, chills, cough with onset yesterday. Quality described as generalized illness, no radiation to chest pain, shortness of breath, intractable vomiting, high fever, respiratory distress, profound lethargy. Severity is described as moderate. Palliating factors include nothing specific attempted. Provoking factors include nothing specific. Events leading up to the incident/Associated Symptoms: Patient did get flu shot this year. Patient not anticoagulated. Related Data Home Medications ?Medication ?Instructions ?Recorded ?Confirmed diphenhydramine HCl 25 mg capsule 25 mg PO PRN PRN 12/10/17 07/09/25 immun glob G 10 gram/50 mL(20 20 gm IV monthly #100 mL 03/07/18 07/09/25 %)-pro-IgA 0-50 mcg/mL subcutaneous soln (Hizentra) ondansetron 4 mg disintegrating 4 mg PO Q8-10H PRN #10 tabs 06/17/24 07/09/25 tablet budesonide-formoterol HFA 160 2 puff inhalation BID #10.2 grams 03/05/25 07/09/25 mcg-4.5 mcg/actuation aerosol inhaler (Symbicort) fluoxetine 10 mg capsule See Rx Instructions .Route 03/05/25 07/09/25 .COMPLEX #90 caps inhalational spacing device #2 ea 03/05/25 07/09/25 (Aerochamber MV spacer) levonorgestrel-ethinyl estradiol See Rx Instructions .Route 06/14/25 07/09/25 0.1 mg-20 mcg tablet (Vienva) .COMPLEX #84 tabs oseltamivir 75 mg capsule 75 mg PO BID 5 days #10 caps 07/09/25 Previous Rx's ?Medication ?Instructions ?Recorded ondansetron 4 mg disintegrating 4 mg PO Q8-10H PRN #10 tabs 06/17/24 tablet budesonide-formoterol HFA 160 2 puff inhalation BID #10.2 grams 03/05/25 mcg-4.5 mcg/actuation aerosol inhaler (Symbicort) fluoxetine 10 mg capsule See Rx Instructions .Route 03/05/25 .COMPLEX #90 caps inhalational spacing device #2 ea 03/05/25 (Aerochamber MV spacer) levonorgestrel-ethinyl estradiol See Rx Instructions .Route 06/14/25 0.1 mg-20 mcg tablet (Vienva) .COMPLEX #84 tabs oseltamivir 75 mg capsule 75 mg PO BID 5 days #10 caps 07/09/25 Allergies Allergy/AdvReac Type Severity Reaction Status Date / Time No Known Allergies Allergy Verified 07/09/25 14:42 General Stated Complaint: RespSymp GATITO: 3 Review of Systems All systems reviewed & are unremarkable except as noted in HPI and below Exam Narrative Exam Narrative: GENERAL APPEARANCE: Well-nourished, non-toxic, awake and alert, atraumatic, mild acute distress. SKIN: Warm, pink, dry, intact, without rashes/lesions/ulcerations. HEAD: Normocephalic, atraumatic, normal hair distribution for gender/age. EYES: Normal conjunctiva, no exudates on lids/lashes. ENT: Nares patent, no circumoral cyanosis, no facial swelling NECK: Supple, trachea midline, painless cervical ROM. LUNGS/CHEST: Lungs CTA bilaterally-no rhonchi/rales/wheeze diffusely, non-labored respirations, normal A/P diameter, symmetrical expansion, no chest wall deformity HEART (CV/PV): Regular rate and rhythm without murmur, no peripheral edema, no JVD. ABDOMEN: Soft, non-distended, no guarding. MSK: Normal ROM, no swelling/deformity to bilateral UEs or LEs, moving all extremities without weakness, no cyanosis, spine midline without tenderness, normal curvature. NEURO: Mental Status AAOx4 - alert to person, place, time, events No facial droop, no forehead involvement. Motor: No focal weakness - strength 5/5 in bilateral UEs and LEs, proximal and distal, symmetric. Sensory: sensation intact to light touch globally. Gait normal: patient ambulated without ataxia into ED room. PSYCH: euthymic, cooperative, pleasant, appropriate speech Course Vital Signs Vital signs: Vital Signs Temperature 36.4 C 07/09/25 14:38 Pulse 81 07/09/25 14:38 Respiratory Rate 20 07/09/25 14:38 Blood Pressure 109/70 07/09/25 14:38 Pulse Oximetry 98 07/09/25 14:38 Temperature 36.4 C 07/09/25 14:41 Pulse 81 07/09/25 14:41 Respiratory Rate 20 07/09/25 14:41 Blood Pressure 109/70 07/09/25 14:41 Blood Pressure Position Sitting 07/09/25 14:41 Pulse Oximetry 98 07/09/25 14:41 Oxygen Delivery Method Room Air 07/09/25 14:41 Oxygen Flow Rate 0 07/09/25 14:41 Lab/Test Results Lab/Test Results: Laboratory Tests Range/Units 07/09/25 15:09 COVID-19 Source Nasopharynx SARS-CoV-2 (PCR) (Negative) Negative Influenza Type A (PCR) (Negative) Positive A Influenza Type B (PCR) (Negative) Negative RSV (PCR) (Negative) Negative Medical Decision Making This dictation utilizes [id number] dictation software and may contain unedited grammatical errors. 19 year-old female presents to ED today by POV/ambulating with her mother with a chief complaint of N/V/D, sore throat, headache, chills, cough with onset yesterday. Quality described as generalized illness, no radiation to chest pain, shortness of breath, intractable vomiting, high fever, respiratory distress, profound lethargy. Severity is described as moderate. Palliating factors include nothing specific attempted. Provoking factors include nothing specific. Events leading up to the incident/Associated Symptoms: Patient did get flu shot this year. Patients' medical history: States she has IgA and IgG immunodeficiency, mild intermittent asthma, trigeminal neuralgia, migraine. Family and social history: Noncontributory. Pertinent exam findings / vital signs include lungs CTA, stable vitals, afebrile, nontoxic. Differential / pathologies of concern include viral syndrome, COVID or the flu, less likely pneumonia. Diagnostic studies of: -Respiratory PCR swab - negative. Interventions of: - Rx for Tamiflu. ED Course/Assessment/Plan: 19-year-old female presents with influenza A, within window to start Tamiflu, counseled on Tylenol and ibuprofen and tea with honey for sore throat, strict return criteria for any respiratory distress or other emergent concerns. Findings not consistent with hypoxic respiratory failure, high fever, toxic presentation. Disposition of Influenza A. Patient verbalized understanding of the plan and return to ED criteria and engaged in shared decision making. Medical Records Medical records reviewed: Yes I reviewed the patient's medical records. Lab Data Lab results reviewed: Yes I reviewed the patient's lab results. Labs: Laboratory Tests Range/Units 07/09/25 15:09 COVID-19 Source Nasopharynx SARS-CoV-2 (PCR) (Negative) Negative Influenza Type A (PCR) (Negative) Positive A Influenza Type B (PCR) (Negative) Negative RSV (PCR) (Negative) Negative PFSH All Active Problems (Updated 07/09/25 @ 16:51 by ROSALINO Madrigal) Influenza A (Acute) Dehydration (Acute) Influenza-like illness (Acute) Fatigue (Acute) Congenital immunodeficiency disease (Acute 11/10/12) IgA and IgG deficiencies- followed by Dr. 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 Lucas, [facility] [place] Pyloric stenosis REPAIRED Chronic otitis media Bacterial urinary infection NORMAL US 02-20-08 Surgical History H/O breast surgery Mass excised [facility] [place] November 2021 Repair, Pyloric Stenosis Myringotomy w/ PE (pressure equalizing) tubes Adenoidectomy Family History Mother No problems noted. Father No problems noted. 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
[2025-07-09 17:02] VITALS: BP 106/71; PULSE 90; RESP 20; O2SAT 98
== END 2025-07-09 17:02 | disposition home or self-care (01) ==
PROVIDERS: Student in an Organized Health Care Education/Training Program; Emergency Provider Physician Assistant; PCP Nurse Practitioner Pediatrics
DX: J10.1 Influenza due to other identified influenza virus with other respiratory manifestations (principal)
CPT/HCPCS: 87637; 99283

== ENCOUNTER 2025-07-11 00:46 | Outpatient (RCR) | payer OTHER, SELFPAY ==
[2025-07-11 10:55] VITALS: BP 108/77; PULSE 88; TEMP 36.4; O2SAT 97
[2025-07-11] MEDS: [UNRECOGNIZED DRUG - OTHER] IVPB (11:01)
[2025-07-11 11:10] VITALS: BP 104/71; PULSE 86; TEMP 36.4; O2SAT 97
[2025-07-11 11:30] VITALS: BP 112/73; PULSE 76; TEMP 36.6; O2SAT 98
[2025-07-11] MEDS: Normal Saline Flush 10 ML SYR IVP (11:55)
[2025-07-11 12:00] VITALS: BP 105/73; PULSE 66; TEMP 36.5; O2SAT 96
[2025-07-11 12:30] VITALS: BP 97/64; PULSE 73; TEMP 36.5; O2SAT 98
[2025-07-11] MEDS: Immune Globulin-Privigen 10 GM/100 ML BTL IVPB (12:37)
[2025-07-11 13:00] VITALS: BP 111/71; PULSE 84; RESP 16; TEMP 36.6; O2SAT 98
== END 2025-07-24 23:59 | disposition home or self-care (01) ==
LOC: INF 00:46
PROVIDERS: PCP Nurse Practitioner Pediatrics; Visit Provider Family Medicine
DX: D80.2 Selective deficiency of immunoglobulin A [IgA] (principal); D83.9 Common variable immunodeficiency, unspecified
CPT/HCPCS: 96365; 96366; J1459